=== PATIENT | female | born 1970 | race African-American/Black ===

== ENCOUNTER 2017-03-09 15:41 | Emergency (ER) | payer OTHER ==
[~2017-03-09] VITALS: Ht 165.1 cm; Wt 109.0 kg
[2017-03-09] MEDS ORDERED: SODIUM CHLORIDE 0.9% 1,000 ML IV ONE (16:01)
[2017-03-09] MEDS ORDERED: KETOROLAC 30MG/ML VIAL IV STA (16:01)
[2017-03-09] MEDS ORDERED: ONDANSETRON HCL 4MG/2ML VIAL IV STA (16:01)
[2017-03-09 16:17] LABS: BASOPHILS % 0.4 % (0.0-2.0); EOSINOPHILS % 0.8 % (0.0-5.0); HEMATOCRIT. 37.5 % (36.0-48.0); HEMOGLOBIN. 13.3 g/dL (12.0-16.0); LYMPHOCYTES % 39.5 % (20.0-50.0); MEAN CORPUSCULAR HEMOGLOBIN 26.2 pg (28.0-32.0); MEAN CORPUSCULAR VOLUME 73.9 fL (81.0-99.0); MEAN PLATELET VOLUME 7.9 fl (7.4-10.4); MONOCYTES % 11.3 % (2.0-8.0); PLATELET 372 x1000/uL (130-400); RED BLOOD CELL COUNT 5.07 mill/uL (4.2-5.4); RED CELL DISTRIBUTION WIDTH 13.1 % (11.6-14.6)
[2017-03-09 16:23] LABS: INR 1.1; PROTHROMBIN TIME 11.4 sec
[2017-03-09 16:27] LABS: CARBON DIOXIDE 25 mEq/L (21-32); CHLORIDE 96 mEq/L (98-107)
[2017-03-09 16:49] LABS: HCG SCREEN NEGATIVE
[2017-03-09 17:10] LABS: GLUCOSE URINE NEGATIVE (NEGATIVE); KETONES URINE NEGATIVE (NEGATIVE); LEUKOCYTE ESTERASE URINE NEGATIVE (NEGATIVE); NITRITE URINE NEGATIVE (NEGATIVE); OCCULT BLOOD URINE NEGATIVE (NEGATIVE); PROTEIN URINE NEGATIVE (NEGATIVE); SPECIFIC GRAVITY URINE 1.012 (1.005-1.030)
[2017-03-09 17:14] LABS: CLARITY URINE CLEAR (CLEAR); COLOR URINE YELLOW (YELLOW)
[2017-03-09 18:10] VITALS: BP 133/72
== END 2017-03-09 19:05 | disposition home or self-care (01) ==
LOC: ER 15:57
DX: R10.33 Periumbilical pain (principal); I10 Essential (primary) hypertension; K80.80 Other cholelithiasis without obstruction; Z90.710 Acquired absence of both cervix and uterus
CPT/HCPCS: 36415; 74176; 80053; 81003; 83690; 84703; 85025; 85610; 96361; 96374; 96375; 99285; J1885; J2405; J7030; Z7610

== ENCOUNTER 2023-04-16 11:23 | Emergency (ER) | payer OTHER ==
[~2023-04-16] VITALS: Ht 172.7 cm; Wt 100.0 kg
[2023-04-16 11:24] VITALS: O2SAT 99
[2023-04-16 11:58] LABS: BASOPHILS % 0.5 % (0.0-2.0); EOSINOPHILS % 1.3 % (0.0-5.0); HEMATOCRIT. 33.5 % (36.0-48.0); HEMOGLOBIN. 11.8 g/dL (12.0-16.0); LYMPHOCYTES % 28.2 % (20.0-50.0); MEAN CORPUSCULAR HEMOGLOBIN 27.6 pg (28.0-32.0); MEAN CORPUSCULAR VOLUME 78.2 fL (81.0-99.0); MEAN PLATELET VOLUME 8.7 fl (7.4-10.4); MONOCYTES % 9.7 % (2.0-8.0); NEUTROPHILS % 60.3 % (40.0-76.0); PLATELET 271 x1000/uL (130-400); RED BLOOD CELL COUNT 4.28 mill/uL (4.2-5.4); RED CELL DISTRIBUTION WIDTH 14.1 % (11.6-14.6)
[2023-04-16] MEDS: ADENOSINE 3 MG/ML 2ML VIAL IV ONE ×2 (12:00→12:13)
[2023-04-16] MEDS ORDERED: ADENOSINE 3 MG/ML 2ML VIAL IV ONE (12:00)
[2023-04-16 12:14] LABS: CHLORIDE 105 mEq/L (98-107)
[2023-04-16 12:34] LABS: T4 FREE 0.82 ng/dL (0.76-1.46)
[2023-04-16 13:00] VITALS: TEMP 98.4
[2023-04-16 15:04] VITALS: BP 154/68; PULSE 78; RESP 16
== END 2023-04-16 15:08 | disposition home or self-care (01) ==
LOC: ER 11:23
DX: R00.2 Palpitations (principal); I47.1 Supraventricular tachycardia; I10 Essential (primary) hypertension; Z90.710 Acquired absence of both cervix and uterus
CPT/HCPCS: 99291; 96374; 80053; 84439; 84443; 85025; 84484; 36415; 71045; J0153

== ENCOUNTER 2024-02-02 13:11 | Emergency (ER) | payer OTHER ==
[~2024-02-02] VITALS: Ht 167.6 cm; Wt 77.0 kg
[2024-02-02 13:15] VITALS: O2SAT 99
[2024-02-02 13:46] LABS: BASOPHILS % 0.9 % (0.0-2.0); EOSINOPHILS % 3.2 % (0.0-5.0); HEMATOCRIT. 32.6 % (36.0-48.0); HEMOGLOBIN. 11.1 g/dL (12.0-16.0); LYMPHOCYTES % 43.3 % (20.0-50.0); MEAN CORPUSCULAR HEMOGLOBIN 27.6 pg (28.0-32.0); MEAN CORPUSCULAR HGB CONC 34.2 g/dL (31.0-37.0); MEAN CORPUSCULAR VOLUME 80.5 fL (81.0-99.0); MEAN PLATELET VOLUME 9.9 fl (7.4-10.4); NEUTROPHILS % 43.6 % (40.0-76.0); PLATELET 202 x1000/uL (130-400); RED BLOOD CELL COUNT 4.04 mill/uL (4.2-5.4); RED CELL DISTRIBUTION WIDTH 14.3 % (11.6-14.6); WHITE BLOOD COUNT 2.6 x1000/uL (4.5-11.0)
[2024-02-02 13:52] LABS: CHLORIDE 106 mEq/L (98-107); POTASSIUM 3.9 mEq/L (3.5-5.1); SODIUM 138 mEq/L (136-145)
[2024-02-02 13:53] LABS: CARBON DIOXIDE 26 mEq/L (21-32)
[2024-02-02 13:54] LABS: CALCIUM 8.4 mg/dL (8.7-10.4); INR 1.1; PARTIAL THROMBOPLASTIN TIME 28.2 sec (23.4-31.0); PROTHROMBIN TIME 11.9 sec (9.6-11.0)
[2024-02-02] MEDS: ASPIRIN 81MG TABLET PO ONE (13:54)
[2024-02-02] MEDS: DILTIAZEM HCL 5MG/ML 5ML VIAL IV ONE (13:54)
[2024-02-02 13:58] LABS: CREATININE 0.8 mg/dL (0.6-1.0); GLUCOSE 118 mg/dL (70-105); UREA NITROGEN BLOOD 12 mg/dL (9-23)
[2024-02-02 14:00] LABS: ALANINE AMINOTRANSFERASE 119 IU/L (10-49); ALBUMIN 4.1 g/dL (3.2-4.8); ASPARTATE AMINOTRANSFERASE 171 IU/L (<34); BILIRUBIN TOTAL 0.5 mg/dL (0.1-1.0)
[2024-02-02 14:01] LABS: PROTEIN TOTAL 7.4 g/dL (6.0-8.3)
[2024-02-02 14:04] LABS: T4 FREE 0.89 ng/dL (0.89-1.76)
[2024-02-02 14:05] LABS: THYROID STIMULATING HORMONE 32.31 uIU/mL (0.55-4.78)
[2024-02-02 14:06] LABS: TROPONIN I HIGH SENSITIVITY < 4 ng/L (3.0-34)
[2024-02-02] MEDS: DILTIAZEM HCL 30MG TABLET PO ONE (15:25)
[2024-02-02 15:30] VITALS: BP 133/86; PULSE 70; RESP 14; TEMP 98
== END 2024-02-02 15:45 | disposition home or self-care (01) ==
LOC: ER 13:11
DX: I47.10 Supraventricular tachycardia, unspecified (principal); R00.2 Palpitations; I10 Essential (primary) hypertension; E05.90 Thyrotoxicosis, unspecified without thyrotoxic crisis or storm; Z90.710 Acquired absence of both cervix and uterus
CPT/HCPCS: 80053; 83880; 84439; 84443; 85025; 85610; 85730; 84484; 36415; 71045; 93005; 96374; 99285; 84481; Z7610 ×2; J3490